=== PATIENT | male | born 2000 | race Hispanic/Latino ===

== ENCOUNTER → 2020-11-04 | Outpatient (CLI) | payer OTHER ==
--- NOTE | 2020-11-04 17:51 | REPVR ---
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 COMPARISON: No relevant prior studies available. FINDINGS: Thoracic vertebral body heights are maintained. No abnormal marrow signal. No cord compression. No abnormal cord signal. Thoracic kyphosis is preserved. Thoracic disc space heights are normal. No significant areas of canal or foraminal narrowing. Soft tissues are unremarkable. IMPRESSION: No acute findings in the thoracic spine. Electronically signed by: Julio C Chapman On 11/04/2020 17:51:00 PM
== END ==
LOC: M PLARAD 14:59
PROVIDERS: ATTEND Physician Assistant
DX: M51.34 Other intervertebral disc degeneration, thoracic region (principal)

== ENCOUNTER → 2021-02-03 | Outpatient (REF) ==
--- NOTE | 2021-02-03 15:28 | REP ---
INDICATION: [facility]- ARTHRITIS COMPARISON: None. TECHNIQUE: AP, lateral, and swimmers views. FINDINGS: Alignment and kyphosis is maintained. Vertebral bodies intact. No acute fracture / compression injury or subluxation. No degenerative changes. Paravertebral soft tissues are normal. IMPRESSION: Normal thoracic spine series. <Electronically signed by Juan Urban > 02/03/21 [id number]
--- NOTE | 2021-02-03 15:28 | REP ---
INDICATION: [facility]- ARTHRITIS COMPARISON: None. TECHNIQUE: AP, lateral, coned-down views of the lumbar spine. FINDINGS: Three views of the lumbosacral spine demonstrate satisfactory alignment and lordosis without acute fracture / compression injury or subluxation. IMPRESSION: 1. No acute fracture / compression injury or subluxation. 2. No significant degenerative changes appreciated <Electronically signed by Juan Urban > 02/03/21 [id number]
--- NOTE | 2021-02-03 15:29 | REP ---
INDICATION: [facility]- ARTHRITIS COMPARISON: None. TECHNIQUE: AP, lateral, flexion/extension, bilateral oblique, and open-mouth views. FINDINGS: Alignment and lordosis is maintained. There is no evidence for acute fracture / compression injury or subluxation. No significant degenerative changes are appreciated. Oblique views demonstrate patent neural foramen. Open mouth view demonstrates normal C1-C2 articulation and odontoid process. IMPRESSION: Normal cervical spine series. <Electronically signed by Juan Urban > 02/03/21 [id number]
--- NOTE | 2021-02-03 15:30 | REP ---
INDICATION: [facility]- ARTHRITIS COMPARISON: None. TECHNIQUE: AP, lateral, sunrise views of the left knee FINDINGS: The osseous structures and joint spaces are intact and normal. There is no evidence for acute fracture or dislocation. No joint effusion is appreciated. Surrounding soft tissues are unremarkable. No subcutaneous emphysema or radiodense foreign body. IMPRESSION: Normal examination. No acute fracture or dislocation. <Electronically signed by Juan Urban > 02/03/21 [id number]
--- NOTE | 2021-02-03 15:31 | REP ---
INDICATION: [facility]- ARTHRITIS COMPARISON: None. TECHNIQUE: AP and frog-lateral views of the right hip FINDINGS: No acute fracture or dislocation. Skeletal structures, joint spaces, and surrounding soft tissues are age-appropriate and normal. No arthritic degenerative changes. IMPRESSION: Normal age-appropriate right hip radiographs. <Electronically signed by Juan Urban > 02/03/21 [id number]
--- NOTE | 2021-02-03 15:33 | REP ---
INDICATION: [facility]- ARTHRITIS COMPARISON: None. TECHNIQUE: Internal rotation, external rotation, and Y view. FINDINGS: There appears to be partial resection of the distal clavicle and correlation with history is recommended. The acromion and scapula appear intact. The glenohumeral joint is normal. The subacromial space is normal. No periarticular calcifications or loose bodies are identified IMPRESSION: Findings suggest prior partial resection to the distal clavicle. Otherwise normal examination. <Electronically signed by Juan Urban > 02/03/21 [id number]
== END ==
LOC: M PLAIMG 13:56
PROVIDERS: ATTEND Internal Medicine
DX: Z00.00 Encounter for general adult medical examination without abnormal findings (principal)